=== PATIENT | female | born 1975 | race Caucasian/White ===

== ENCOUNTER 2016-12-05 01:10 | Emergency (ER) | payer MEDICAID, OTHER ==
[~2016-12-05] VITALS: Ht 175.3 cm; Wt 97.5 kg
[~2016-12-05 01:10] MED LIST: LISI-603 PO
[2016-12-05] MEDS ORDERED: LISINOPRIL 10 MG TABLET (01:50)
[2016-12-05] MEDS ORDERED: OMEPRAZOLE DR 20 MG CAPSULE (01:50)
[2016-12-05] MEDS ORDERED: TRAMADOL HCL 50 MG TABLET (01:50)
[2016-12-05] MEDS ORDERED: CARISOPRODOL 350 MG (01:50)
--- NOTE | 2016-12-05 01:55 | NUR ---
DR STACK IN ROOM FOR OLGA.
[2016-12-05] MEDS ORDERED: LIDOCAINE VISCUS 2% 15 ML UDC MM ONE (02:00)
[2016-12-05] MEDS ORDERED: PANTOPRAZOLE SODIUM 40 MG TABLET.DR PO ONE ×2 (02:00→02:25)
[2016-12-05] MEDS ORDERED: MAG HYDROX/AL HYDROX/SIMETH 30 ML LIQUID UDC PO ONE (02:00)
[2016-12-05 02:11] LABS: *URINE HCG, QUAL NEGATIVE (NEGATIVE)
--- NOTE | 2016-12-05 02:17 | NUR ---
Pt seen by Dr. Hernandes for c/o severe abd pain. Pt medicated for discomfort, will monitor for effects of medication. Pt resting in position of comfort for self.
[2016-12-05] MEDS ORDERED: MAG HYDROX/AL HYDROX/SIMETH 30 ML LIQUID UDC ONE (02:24)
[2016-12-05] MEDS ORDERED: LIDOCAINE VISCUS 2% 15 ML UDC ONE (02:24)
[2016-12-05] MEDS ORDERED: KETOROLAC TROMETHAMINE 30 MG INJ IM ONE (03:00)
[2016-12-05] MEDS ORDERED: KETOROLAC TROMETHAMINE 30 MG INJ ONE (03:16)
--- NOTE | 2016-12-05 03:25 | NUR ---
Pt sts little relief from medication but declines anything stronger here bc she is driving. Pt sts she will fill her RX and take it when she gets home. Pt stable for discharge per Dr. Hernandes. Pt given ACI and verbalized understanding of dc insructions. Pt ambulated out of er with steady gait.
[2016-12-05 03:55] VITALS: BP 141/94
== END 2016-12-05 03:25 | disposition home or self-care (01) ==
LOC: ER 01:10
DX: K80.20 Calculus of gallbladder without cholecystitis without obstruction (principal); I10 Essential (primary) hypertension; G43.909 Migraine, unspecified, not intractable, without status migrainosus
CPT/HCPCS: 84703; 96372; 99284; A4663; J1885

== ENCOUNTER 2017-09-24 12:18 | Emergency (ER) | payer OTHER ==
[~2017-09-24] VITALS: Ht 175.3 cm; Wt 97.5 kg
[~2017-09-24 12:18] MED LIST changes: +CARISOPRODOL 350 MG; +LISINOPRIL 10 MG TABLET; +OMEPRAZOLE DR 20 MG CAPSULE; +TRAMADOL HCL 50 MG TABLET
--- NOTE | 2017-09-24 12:47 | NUR ---
mse completed, aci/rx x1 given to mom. pt ambuklated w/o diff/took all belongings.
[2017-09-24 12:48] VITALS: BP 144/88
== END 2017-09-24 12:49 | disposition home or self-care (01) ==
LOC: ER 12:19
DX: J02.9 Acute pharyngitis, unspecified (principal); I10 Essential (primary) hypertension; Z88.8 Allergy status to other drugs, medicaments and biological substances; Z79.891 Long term (current) use of opiate analgesic; Z79.899 Other long term (current) drug therapy
CPT/HCPCS: A4663

== ENCOUNTER 2018-09-01 12:06 | Emergency (ER) | payer OTHER ==
[~2018-09-01] VITALS: Ht 177.8 cm; Wt 103.4 kg
[2018-09-01 12:31] LABS: BASOPHILS # (AUTO) 0.1 K/uL (0.0-8.0); EOSINOPHILS # (AUTO) 0.1 K/uL (0.0-0.7); EOSINOPHILS % (AUTO) 2.2 % (0.0-7.0); HEMATOCRIT 37.3 % (31.2-41.9); HEMOGLOBIN 12.4 g/dL (10.9-14.3); LYMPHOCYTES # (AUTO) 2.1 K/uL (20.0-40.0); LYMPHOCYTES % (AUTO) 40.1 % (20.5-51.5); MEAN CORPUSCULAR HEMOGLOBIN 29.9 uug (24.7-32.8); MEAN CORPUSCULAR HGB CONC 33 g/dL (32.3-35.6); MONOCYTES # (AUTO) 0.5 K/uL (2.0-10.0); MONOCYTES % (AUTO) 9.2 % (0.0-11.0); NEUTROPHILS # (AUTO) 2.4 K/uL (1.8-8.9); NEUTROPHILS % (AUTO) 46.5 % (38.5-71.5); PLATELET COUNT (AUTO) 361 K/uL (179-408); RED BLOOD CELL COUNT(AUTO) 4.15 MIL/uL (3.63-4.92); WHITE BLOOD COUNT (AUTO) 5.2 K/uL (3.8-11.8)
[2018-09-01 12:39] LABS: CREATININE 0.7 mg/dL (0.6-1.3); POTASSIUM 4.4 mmol/L (3.5-5.1)
[2018-09-01 12:57] LABS: BILIRUBIN,DIRECT 0.1 mg/dL (0.0-0.2); BILIRUBIN,TOTAL 0.3 mg/dL (0.2-1.0); TOTAL PROTEIN, SERUM 7.8 g/dL (6.4-8.2)
[2018-09-01] MEDS ORDERED: IV NORMAL SALINE 1000 ML BAG IV ONE (13:30)
[2018-09-01] MEDS ORDERED: ROSU5TAB PO (13:32)
[2018-09-01] MEDS ORDERED: HYDR-3326 PO (13:32)
[2018-09-01] MEDS ORDERED: LISI10TA5 PO (13:32)
[2018-09-01] MEDS ORDERED: IV NORMAL SALINE 250 ML IV ONE (13:33)
[2018-09-01] MEDS ORDERED: SWABABLE VALVE TRANSFER SET EA MC ONE (13:33)
[2018-09-01] MEDS ORDERED: IOHEXOL 350 100 ML INFUS..BTL ONE (13:33)
--- NOTE | 2018-09-01 14:18 | NUR ---
ATTEMTED TO HEPLOCK THE PT X3, ASKED RADHIKA GATICA ALSO TO TRY TO HEPLOCK THE PT. UNSUCCESSFUL. NOTIFIED.
--- NOTE | 2018-09-01 14:24 | NUR ---
PT SAYS FEELS BETTER, LESS ANXIOUS WHEN SHE CAME TO ER.
--- NOTE | 2018-09-01 15:26 | NUR ---
Patient discharged to home in stable conditon. verbal after care instructions given. Patient verbalizes understanding of instructions.PT SAYS FEELS GOOD AND IS READY TO GO HOME. A COPY OF STUDIES AND MENTAL HEALTH RESOURCE PROVIDED FOR PT PER REQUEST.PT WALKS IN STEADY GAIT, [place] CP, SOB,N/V OR ANY OTHER DISTRESS AT THIS POINT.
[2018-09-01 15:29] VITALS: BP 129/71
== END 2018-09-01 15:31 | disposition home or self-care (01) ==
LOC: ER 12:06
DX: R07.89 Other chest pain (principal); F43.9 Reaction to severe stress, unspecified; M54.5 Low back pain; I10 Essential (primary) hypertension; Z88.8 Allergy status to other drugs, medicaments and biological substances; Z79.899 Other long term (current) drug therapy
CPT/HCPCS: 36415; 70030-TC; 71045; 85025; 85730; 93005; A4663; J7050; Q9967

== ENCOUNTER 2018-09-24 11:12 | Emergency (ER) | payer OTHER ==
[~2018-09-24] VITALS: Ht 175.3 cm; Wt 103.4 kg
[~2018-09-24 11:12] MED LIST changes: -CARISOPRODOL 350 MG; +HYDR-3326 PO; -LISI-603 PO; +LISI10TA5 PO; -LISINOPRIL 10 MG TABLET; -OMEPRAZOLE DR 20 MG CAPSULE; +ROSU5TAB PO; -TRAMADOL HCL 50 MG TABLET
--- NOTE | 2018-09-24 11:37 | NUR ---
DR DA SILVA AT THE BEDSIDE FOR MSE.
[2018-09-24] MEDS ORDERED: ONDANSETRON ODT 4 MG TAB.RAPDIS SL ONE (11:45)
[2018-09-24] MEDS ORDERED: OXYCODONE/APAP 5-325 MG TABLET PO ONE (11:45)
[2018-09-24] MEDS ORDERED: ONDANSETRON ODT 4 MG TAB.RAPDIS ONE (11:51)
[2018-09-24] MEDS ORDERED: OXYCODONE/APAP 5-325 MG TABLET ONE (11:52)
[2018-09-24 11:59] VITALS: BP 143/89
--- NOTE | 2018-09-24 11:59 | NUR ---
Patient discharged to home in stable conditon. Written and verbal after care instructions given. Patient verbalizes understanding of instructions.
== END 2018-09-24 12:02 | disposition home or self-care (01) ==
LOC: ER 11:14
DX: G43.909 Migraine, unspecified, not intractable, without status migrainosus (principal); J06.9 Acute upper respiratory infection, unspecified; I10 Essential (primary) hypertension; Z88.8 Allergy status to other drugs, medicaments and biological substances; Z79.899 Other long term (current) drug therapy
CPT/HCPCS: A4663; Q0162

== ENCOUNTER 2019-02-23 02:07 | Inpatient (IN) | payer OTHER ==
[~2019-02-23] VITALS: Ht 175.3 cm; Wt 108.0 kg
[2019-02-23] MEDS ORDERED: CARI350T PO (02:21)
[2019-02-23] MEDS ORDERED: HYDR12.5 PO (02:21)
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
--- NOTE | 2019-02-23 02:40 | NUR ---
NOTED L KNEE SWELLING AND ERYTHEMA, D +BRUISE SP DRAINAGE OF FLUID COOL TO TOUCH, PEDAL PULSES PRESENT ON BOTH
[2019-02-23 03:11] LABS: BASOPHILS # (AUTO) 0.1 K/uL (0.0-8.0); BASOPHILS % (AUTO) 1.2 % (0.0-2.0); EOSINOPHILS # (AUTO) 0.1 K/uL (0.0-0.7); EOSINOPHILS % (AUTO) 1.4 % (0.0-7.0); HEMOGLOBIN 11.4 g/dL (10.9-14.3); LYMPHOCYTES # (AUTO) 1.9 K/uL (20.0-40.0); LYMPHOCYTES % (AUTO) 25.8 % (20.5-51.5); MEAN CORPUSCULAR HEMOGLOBIN 29.5 uug (24.7-32.8); MEAN CORPUSCULAR HGB CONC 34 g/dL (32.3-35.6); MEAN CORPUSCULAR VOLUME 87.9 fL (75.5-95.3); MONOCYTES # (AUTO) 0.7 K/uL (2.0-10.0); NEUTROPHILS # (AUTO) 4.5 K/uL (1.8-8.9); NEUTROPHILS % (AUTO) 62.6 % (38.5-71.5); PLATELET COUNT (AUTO) 425 K/uL (179-408); RED BLOOD CELL COUNT(AUTO) 3.87 MIL/uL (3.63-4.92); WHITE BLOOD COUNT (AUTO) 7.3 K/uL (3.8-11.8)
--- NOTE | 2019-02-23 03:16 | NUR ---
structural steel trades worker at bedside
[2019-02-23 03:19] LABS: CARBON DIOXIDE 26 mmol/L (21-32); CHLORIDE 97 mmol/L (98-107); CREATININE 0.6 mg/dL (0.6-1.3); GLUCOSE 114 mg/dL (74-106); POTASSIUM 3.8 mmol/L (3.5-5.1); UREA NITROGEN, BLOOD 6 mg/dL (7-18)
[2019-02-23 03:25] LABS: ALANINE AMINOTRANSFERASE 32 U/L (14-59); ALKALINE PHOSPHATASE 79 U/L (50-136); ASPARTATE AMINOTRANSFERASE 17 U/L (15-37); BILIRUBIN,DIRECT < 0.1 mg/dL (0.0-0.2); BILIRUBIN,TOTAL 0.3 mg/dL (0.2-1.0); TOTAL PROTEIN, SERUM 8.2 g/dL (6.4-8.2)
--- NOTE | 2019-02-23 03:33 | NUR ---
us tech at bedside
[2019-02-23 03:38] LABS: *BILIRUBIN,URIN NEGATIVE (NEGATIVE); *BLOOD, URINE NEGATIVE (NEGATIVE); *CLARITY,URINE CLEAR (CLEAR); *KETONES,URINE NEGATIVE (NEGATIVE); *UROBILINOGEN,URINE 0.2 E.U./dl (NORMAL); LEUKOCYTE ESTERASE ,URINE NEGATIVE (NEGATIVE); NITRITE, URINE NEGATIVE (NEGATIVE); UGLUCOSE NEGATIVE (NEGATIVE)
[2019-02-23] MEDS ORDERED: HYDROCODONE/APAP 10-325 MG TABLET ONE (03:41)
[2019-02-23] MEDS ORDERED: HYDROCODONE/APAP 10-325 MG TABLET PO ONE (03:45)
[2019-02-23] MEDS ORDERED: SWABABLE VALVE TRANSFER SET EA MC ONE (04:00)
[2019-02-23] MEDS ORDERED: IOHEXOL 350 100 ML INFUS..BTL ONE (04:00)
[2019-02-23] MEDS ORDERED: IV NORMAL SALINE 0 ML IV ONE (04:00)
[2019-02-23] MEDS ORDERED: IV NORMAL SALINE 250 ML IV ONE (04:01)
[2019-02-23 04:06] LABS: *COLOR,URINE STRAW (YELLOW); *URINE HCG, QUAL NEGATIVE (NEGATIVE)
--- NOTE | 2019-02-23 04:11 | NUR ---
SHIP SCRAPER AT BEDSIDE PT BROUGHT DOWN TO CT FOR CT ANGIO OF CHEST
[2019-02-23] MEDS ORDERED: ACETAMINOPHEN ES 500 MG TABLET PO ONE (05:00)
[2019-02-23] MEDS ORDERED: IV NS 1000 ML 1,000 ML IV ONE (05:00)
[2019-02-23] MEDS ORDERED: ACETAMINOPHEN ES 500 MG TABLET ONE (05:09)
[2019-02-23] MEDS ORDERED: VANCOMYCIN IV 1,500 MG in IV DEXTROSE 5% 250 ML IV ONE (05:30)
--- NOTE | 2019-02-23 05:33 | NUR ---
ERMD AT BEDSIDE FOR UPDATE PT PENDING DECISION ON ADMISSION
[2019-02-23] MEDS ORDERED: VANCOMYCIN HCL 500 MG VIAL ONE (05:40)
[2019-02-23] MEDS ORDERED: VANCOMYCIN IV 200 ML ONE (05:41)
--- NOTE | 2019-02-23 05:48 | NUR ---
ON THE PHONE WITH PREFERRED IPA (SOLOMON) DISCUSSED ABOUT CLINICALS OF PT ERMD RECOMMENDS ADMISSION DUE TO TACHYCARDIA AND L KNEE SWELLING AND PAIN
--- NOTE | 2019-02-23 05:54 | NUR ---
FAXED CLINICALS TO [phone]
--- NOTE | 2019-02-23 06:37 | NUR ---
EPIC PANEL CALL DONE. A KIARRA (ANCHOR TACKER)
--- NOTE | 2019-02-23 06:58 | NUR ---
HAND OFF AND SBAR GIVEN TO INCOMING DAY SHIFT RN (JUANITO) PT NAD KEPT CALM DRY AND COMFORTABLE FOR ADMISSION TO TELE RM [id number] DX: TACHYCARDIA UNDER KIARRA DNP
--- NOTE | 2019-02-23 07:11 | NUR ---
Janey Weinberg NP paged. Awaiting call back.
--- NOTE | 2019-02-23 07:54 | NUR ---
Janey Weinberg NP returned call and is on the line with ERMD.
--- NOTE | 2019-02-23 08:06 | NUR ---
Report given to SOLO Welch
--- NOTE | 2019-02-23 08:15 | NUR ---
Received patient AO4, Complained of shoulder and back neck pain, and chest pain 2 out 10. L Knew red and swollen, no fever, SBP in 140S Safety initiated
--- NOTE | 2019-02-23 08:21 | NUR ---
Patient transported to TELE via w/c in stable condition.
[2019-02-23] MEDS ORDERED: Z GUARD REMEDY PASTE 57 GM TUBE TOP PRN (08:30)
[2019-02-23] MEDS ORDERED: MAGNESIUM HYDROXIDE 30 ML LIQUID UDC PO PRN (08:30)
[2019-02-23] MEDS ORDERED: ACETAMINOPHEN 325 MG TABLET PO PRN (08:30)
[2019-02-23 08:33] VITALS: BP 142/88
[2019-02-23] MEDS: HYDROCODONE/APAP 10-325 MG TABLET PO PRN ×2 (09:11→19:55)
[2019-02-23] MEDS: ENOXAPARIN SODIUM 40 MG/0.4 ML DISP.SYRIN SQ SCH (09:12)
[2019-02-23] MEDS: IV NS 1000 ML 1,000 ML IV PRN (09:12)
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
[2019-02-23] MEDS: LISINOPRIL 10 MG TABLET PO SCH ×2 (09:34→17:10)
[2019-02-23] MEDS: HYDROCHLOROTHIAZIDE 12.5 MG CAPSULE PO SCH (09:34)
[2019-02-23] MEDS ORDERED: LORAZEPAM 2 MG/1 ML VIAL IV ONE (11:30)
[2019-02-23] MEDS ORDERED: LORAZEPAM 2 MG/1 ML VIAL IV PRN (14:15)
[2019-02-23] MEDS: VANCOMYCIN IV 2,000 MG in IV DEXTROSE 5% 500 ML IV SCH (14:59)
[2019-02-23] MEDS: HYDROCODONE/APAP 5-325MG TABLET PO PRN (14:59)
[2019-02-23 15:45] VITALS: BP 147/91
--- NOTE | 2019-02-23 16:01 | NUR ---
HAD TO STOP ABX B/C PATIENT IS TAKEN DOWN TO DO NUCLEAR STUDY.
--- NOTE | 2019-02-23 18:33 | NUR ---
k pad to left knee as nathan. and alternate with ice bag - Directions - ZELDA BLAKELY NP K pad ordered and ice bag applied
--- NOTE | 2019-02-23 18:34 | NUR ---
Patient AOX4, no distress or sob, on RA, Fluids running at 75/hr. no fever this shift Safety maintained, cont to monitor and indorse to the next shift
[2019-02-23 20:00] VITALS: BP 150/88
[2019-02-24 00:06] VITALS: BP 147/72
[2019-02-24] MEDS: VANCOMYCIN IV 2,000 MG in IV DEXTROSE 5% 500 ML IV SCH ×3 (00:07→20:12)
[2019-02-24] MEDS: IV NS 1000 ML 1,000 ML IV PRN (03:19)
[2019-02-24 04:00] VITALS: BP 140/64
[2019-02-24] MEDS: HYDROCODONE/APAP 10-325 MG TABLET PO PRN (05:50)
[2019-02-24] MEDS: PANTOPRAZOLE SODIUM 40 MG TABLET.DR PO SCH (06:43)
[2019-02-24 07:15] LABS: BASOPHILS % (AUTO) 0.9 % (0.0-2.0); EOSINOPHILS # (AUTO) 0.1 K/uL (0.0-0.7); EOSINOPHILS % (AUTO) 2.2 % (0.0-7.0); HEMATOCRIT 34.2 % (31.2-41.9); HEMOGLOBIN 11.3 g/dL (10.9-14.3); LYMPHOCYTES # (AUTO) 1.6 K/uL (20.0-40.0); LYMPHOCYTES % (AUTO) 33.5 % (20.5-51.5); MEAN CORPUSCULAR HEMOGLOBIN 30.1 uug (24.7-32.8); MEAN CORPUSCULAR HGB CONC 33 g/dL (32.3-35.6); MEAN CORPUSCULAR VOLUME 90.8 fL (75.5-95.3); MONOCYTES # (AUTO) 0.5 K/uL (2.0-10.0); MONOCYTES % (AUTO) 10.5 % (0.0-11.0); NEUTROPHILS # (AUTO) 2.6 K/uL (1.8-8.9); NEUTROPHILS % (AUTO) 52.9 % (38.5-71.5); PLATELET COUNT (AUTO) 382 K/uL (179-408); RED BLOOD CELL COUNT(AUTO) 3.77 MIL/uL (3.63-4.92); WHITE BLOOD COUNT (AUTO) 4.8 K/uL (3.8-11.8)
[2019-02-24 07:18] LABS: CARBON DIOXIDE 27 mmol/L (21-32); CHLORIDE 102 mmol/L (98-107); CHOLESTEROL 231 mg/dL (<200); CREATININE 0.5 mg/dL (0.6-1.3); GLUCOSE 112 mg/dL (74-106); HDL CHOLESTEROL 81 mg/dL (40-60); MAGNESIUM 1.8 mg/dL (1.8-2.4); PHOSPHOROUS 3.4 mg/dL (2.5-4.9); POTASSIUM 3.5 mmol/L (3.5-5.1); TRIGLYCERIDES 61 MG/DL (30-150); UREA NITROGEN, BLOOD 6 mg/dL (7-18)
[2019-02-24 07:25] LABS: THYROID STIMULATING HORMONE 0.201 mIU/mL (0.358-3.740)
[2019-02-24] MEDS: ENOXAPARIN SODIUM 40 MG/0.4 ML DISP.SYRIN SQ SCH (09:16)
[2019-02-24] MEDS: LISINOPRIL 10 MG TABLET PO SCH ×2 (09:17→17:20)
[2019-02-24] MEDS: HYDROCHLOROTHIAZIDE 12.5 MG CAPSULE PO SCH (09:17)
[2019-02-24] MEDS ORDERED: POTASSIUM CHLORIDE 20 MEQ POWDER PACKET PO ONE (11:15)
[2019-02-24 11:32] VITALS: BP 144/87
[2019-02-24] MEDS: MORPHINE SULFATE 2 MG/1 ML DISP.SYRIN IV PRN ×3 (11:56→23:02)
[2019-02-24 14:52] VITALS: BP 128/89
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
[2019-02-24] MEDS: HYDROCODONE/APAP 5-325MG TABLET PO PRN ×2 (15:41→21:24)
[2019-02-24 20:00] VITALS: BP 134/86
[2019-02-25] VITALS: BP 125/65
--- NOTE | 2019-02-25 03:00 | NUR ---
report received from casino shift manager nurse, will continue to monitor patient
[2019-02-25] MEDS: IV NS 1000 ML 1,000 ML IV PRN (04:15)
[2019-02-25] MEDS: MORPHINE SULFATE 2 MG/1 ML DISP.SYRIN IV PRN ×2 (04:27→07:50)
[2019-02-25] MEDS: HYDROCODONE/APAP 5-325MG TABLET PO PRN ×4 (04:40→21:21)
--- NOTE | 2019-02-25 04:53 | NUR ---
patient received sleeping in bed. no signs of acute distress and v/s stable during my shift. safety and comfort measures provided at all times. bed in lowest position, side rails up x2. patient had c/o of pain and asked for morphine but when attempting to administer, patient changed her mind and asked for her [place] instead. Dilaudid wasted and [place] administered. tolerated well. IVF running at 75 cc/hr. will continue to monitor and continue plan of care. Addendum: 02/28/19 at 0706 by THERESE OSULLIVAN RN correction: morphine wasted and [place] administered. not Dilaudid.
[2019-02-25 04:58] VITALS: BP 118/71
[2019-02-25] MEDS: VANCOMYCIN IV 2,000 MG in IV DEXTROSE 5% 500 ML IV SCH ×3 (05:08→22:56)
[2019-02-25 05:47] LABS: CREATININE 0.6 mg/dL (0.6-1.3); MAGNESIUM 1.7 mg/dL (1.8-2.4); PHOSPHOROUS 3.8 mg/dL (2.5-4.9); POTASSIUM 4.1 mmol/L (3.5-5.1)
[2019-02-25] MEDS: PANTOPRAZOLE SODIUM 40 MG TABLET.DR PO SCH (06:00)
[2019-02-25 06:02] LABS: BASOPHILS # (AUTO) 0.1 K/uL (0.0-8.0); BASOPHILS % (AUTO) 1.2 % (0.0-2.0); EOSINOPHILS # (AUTO) 0.2 K/uL (0.0-0.7); HEMOGLOBIN 10.8 g/dL (10.9-14.3); MEAN CORPUSCULAR HEMOGLOBIN 29.2 uug (24.7-32.8); MEAN CORPUSCULAR HGB CONC 33 g/dL (32.3-35.6); MEAN CORPUSCULAR VOLUME 89.2 fL (75.5-95.3); MONOCYTES # (AUTO) 0.6 K/uL (2.0-10.0); MONOCYTES % (AUTO) 10.4 % (0.0-11.0); NEUTROPHILS # (AUTO) 2.7 K/uL (1.8-8.9); NEUTROPHILS % (AUTO) 48.4 % (38.5-71.5); PLATELET COUNT (AUTO) 397 K/uL (179-408); WHITE BLOOD COUNT (AUTO) 5.6 K/uL (3.8-11.8)
--- NOTE | 2019-02-25 07:25 | NUR ---
Received patient resting in bed. Awake alert and oriented x4. Patient reporting pain. bed in lowest position, side rails up x2, call light within reach. Will continue to monitor.
[2019-02-25] MEDS: ENOXAPARIN SODIUM 40 MG/0.4 ML DISP.SYRIN SQ SCH (08:36)
[2019-02-25] MEDS: HYDROCHLOROTHIAZIDE 12.5 MG CAPSULE PO SCH (08:37)
[2019-02-25] MEDS: LISINOPRIL 10 MG TABLET PO SCH ×2 (08:38→16:23)
--- NOTE | 2019-02-25 09:07 | NUR ---
PHARMACY CLINICAL NOTES: (VANCOMYCIN DOSING) S: To continue vanco dosing for this 43 YO female for cellulitis O: BUN/SCR 6/0.6, WBC 5.6, TEMP 98 Vanco trough level on 02/24 at 1930: 12.2 A/P: Since vanco trough level is 12.2,l will change dose to Vancomycin 2000 mg IVPB q9h for estimated trough 15 mcg/ml. 2nd dose today at 1400. plan to order trough level before 4th dose of current regimen (ordered for 02/26 at 0730). pharmacy will check level when available and adjust as needed. will continue to monitor
[2019-02-25] MEDS: MAGNESIUM SULFATE/D5W 100 ML IV SCH ×2 (09:47→10:48)
[2019-02-25] MEDS ORDERED: METHIMAZOLE 5 MG TABLET PO SCH (13:45)
[2019-02-25 16:25] VITALS: BP 130/82
--- NOTE | 2019-02-25 18:21 | NUR ---
Patient rested intermittently throughout day. Patient reported pain, pain medication administered. Patient seen by Dr. Ruano, surgery scheduled for irrigation and debridement and quad repair. Magnesium replaced. Antibiotics administered. Replaced patients IV due to infiltration. Safety and comfort measures provided. Will endorse to oncoming nurse.
[2019-02-26] MEDS: MORPHINE SULFATE 2 MG/1 ML DISP.SYRIN IV PRN ×2 (03:19→09:53)
[2019-02-26 06:39] LABS: BASOPHILS # (AUTO) 0.1 K/uL (0.0-8.0); BASOPHILS % (AUTO) 1.3 % (0.0-2.0); EOSINOPHILS # (AUTO) 0.3 K/uL (0.0-0.7); EOSINOPHILS % (AUTO) 4.5 % (0.0-7.0); HEMATOCRIT 34.1 % (31.2-41.9); HEMOGLOBIN 11.4 g/dL (10.9-14.3); LYMPHOCYTES # (AUTO) 2.3 K/uL (20.0-40.0); LYMPHOCYTES % (AUTO) 38.5 % (20.5-51.5); MEAN CORPUSCULAR HEMOGLOBIN 30.3 uug (24.7-32.8); MEAN CORPUSCULAR HGB CONC 33 g/dL (32.3-35.6); MEAN CORPUSCULAR VOLUME 90.8 fL (75.5-95.3); MONOCYTES # (AUTO) 0.5 K/uL (2.0-10.0); MONOCYTES % (AUTO) 8.8 % (0.0-11.0); NEUTROPHILS # (AUTO) 2.8 K/uL (1.8-8.9); NEUTROPHILS % (AUTO) 46.9 % (38.5-71.5); PLATELET COUNT (AUTO) 384 K/uL (179-408); RED BLOOD CELL COUNT(AUTO) 3.75 MIL/uL (3.63-4.92); WHITE BLOOD COUNT (AUTO) 6.1 K/uL (3.8-11.8)
[2019-02-26] MEDS: IV NS 1000 ML 1,000 ML IV PRN (06:40)
[2019-02-26 06:52] LABS: CREATININE 0.6 mg/dL (0.6-1.3); PHOSPHOROUS 3.6 mg/dL (2.5-4.9); POTASSIUM 3.5 mmol/L (3.5-5.1)
[2019-02-26] MEDS: PANTOPRAZOLE SODIUM 40 MG TABLET.DR PO SCH (07:00)
--- NOTE | 2019-02-26 08:00 | NUR ---
PT RESTING COMFORTABLY IN BED. NO ACUTE DISTRESS OR SOB NOTED. BED LOCKED AND IN LOW POSITION. PT NPO FOR SURGICAL PROCEDURE. CALL LIGHT WITHIN REACH. WILL CONTINUE TO MONITOR FOR SAFETY AND COMFORT.
[2019-02-26] MEDS ORDERED: POLYMYXIN B SULFATE 500,000 UNITS, BACITRACIN 50,000 UNITS, NORMAL SALINE 20 ML MC ONE ×3 (08:30)
[2019-02-26] MEDS: ENOXAPARIN SODIUM 40 MG/0.4 ML DISP.SYRIN SQ SCH (08:30)
--- NOTE | 2019-02-26 08:33 | NUR ---
PHARMACY CLINICAL NOTES: (VANCOMYCIN DOSING) S: To continue vanco dosing for this 43 YO female for cellulitis O: BUN/SCR 6/0.6, WBC 5.6, TEMP 98 Vanco trough level on 02/24 at 1930: 12.2 Vanco trough level on 02/26 at 0730: 16.7 A/P: Since vanco trough level is 16.7 mcg/ml, will continue same dose to Vancomycin 2000 mg IVPB q9h for today. Next dose today at 0900. Will monitor renal function and adjust dose as needed. will continue to monitor Addendum: 02/26/19 at 0835 by SINCERE SMITH BUN/SCR 5/0.6, WBC 6.1, TEMP 97.9
[2019-02-26] MEDS: HYDROCHLOROTHIAZIDE 12.5 MG CAPSULE PO SCH (08:40)
[2019-02-26] MEDS: LISINOPRIL 10 MG TABLET PO SCH ×2 (08:40→18:13)
[2019-02-26] MEDS: VANCOMYCIN IV 2,000 MG in IV DEXTROSE 5% 500 ML IV SCH ×2 (09:53→18:13)
--- NOTE | 2019-02-26 12:00 | NUR ---
PT RESTING COMFORTABLY IN BED. NO ACUTE DISTRESS OR SOB NOTED. PT PAIN MANAGED WITH MEDS. PRE OP CHECKLIST COMPLETED. CONSENT SIGNED. PROCEDURE TO TAKE PLACE AT 1500 PER OR. BED LOCKED AND IN LOW POSITION. IV CHANGED TO RIGHT FOREARM 20 GAUGE. REMOVED LEFT HAND IV INTACT. WILL CONTINUE TO MONITOR. CALL LIGHT WITHIN REACH.
[2019-02-26 12:01] VITALS: BP 130/88
[2019-02-26] MEDS: HYDROCODONE/APAP 5-325MG TABLET PO PRN (12:05)
[2019-02-26] MEDS ORDERED: VANCOMYCIN 1000 MG VIAL ONE (12:57)
--- NOTE | 2019-02-26 14:50 | NUR ---
PT ESCORTED TO OR BY OR STAFF. IV DISCONNECTED. PT ALERT AND ORIENTED X3. NO ACUTE STRESS NOTED. NO SOB NOTED.
[2019-02-26] MEDS ORDERED: FAMOTIDINE. 20 MG/2 ML VIAL IV ONE (15:16)
[2019-02-26] MEDS ORDERED: MIDAZOLAM HCL 2 MG/2 ML VIAL ONE (15:55)
[2019-02-26] MEDS ORDERED: BUPIVACAINE PF 0.5% 30 ML VIAL ONE (16:20)
[2019-02-26] MEDS ORDERED: LIDOCAINE-MPF 2% 5 ML VIAL IJ ONE (16:35)
[2019-02-26] MEDS ORDERED: DEXAMETHASONE SOD PHOSPHATE 4 MG INJ IV ONE (16:35)
[2019-02-26] MEDS ORDERED: IV NORMAL SALINE 1000 ML BAG IV ONE ×2 (16:35)
[2019-02-26] MEDS ORDERED: ONDANSETRON 4 MG/2 ML VIAL IV ONE (16:35)
[2019-02-26] MEDS ORDERED: PROPOFOL 200 MG/20 ML BOTTLE IV ONE (16:35)
[2019-02-26] MEDS ORDERED: CEFAZOLIN 1 G VIAL IM ONE (16:35)
[2019-02-26] MEDS ORDERED: FENTANYL CITRATE 100 MCG/2 ML AMPUL ONE (16:44)
[2019-02-26] MEDS ORDERED: HYDROMORPHONE 1 MG/1 ML DISP.SYRIN ONE (16:57)
--- NOTE | 2019-02-26 18:00 | NUR ---
RECEIVED PT FROM OR ESCORTED BY OR STAFF VIA BED. PT ALERT AND ORIENTED X3. NO ACUTE DISTRESS OR SOB NOTED. NEW ORDERS FAXED TO PHARMACY BY OR. PAIN MANAGED VIA MEDICATION. RESUME ALL PREVIOUS ORDERS PRIOR TO SURGERY. VS WNL. PT BACK ON CARDIAC DIET. WILL ENDORSE TO INCOMING SHIFT.
[2019-02-26] MEDS: HYDROCODONE/APAP 10-325 MG TABLET PO PRN (19:47)
[2019-02-26] MEDS ORDERED: KETOROLAC TROMETHAMINE 30 MG INJ IVP PRN ×2 (20:15→20:30)
[2019-02-26 20:22] VITALS: BP 134/78
[2019-02-26] MEDS: IV D5W-0.45% NS +20 KCL 1,000 ML IV PRN (20:24)
[2019-02-26] MEDS: MORPHINE SULFATE 4 MG/1 ML DISP.SYRIN IV PRN (23:18)
[2019-02-26] MEDS: ONDANSETRON 4 MG/2 ML VIAL IV PRN (23:32)
[2019-02-27] MEDS: HYDROCODONE/APAP 10-325 MG TABLET PO PRN ×5 (00:25→22:03)
[2019-02-27] MEDS: MORPHINE SULFATE 4 MG/1 ML DISP.SYRIN IV PRN ×5 (03:19→20:23)
[2019-02-27 04:03] VITALS: BP 132/64
[2019-02-27] MEDS: VANCOMYCIN IV 2,000 MG in IV DEXTROSE 5% 500 ML IV SCH ×3 (04:11→21:19)
--- NOTE | 2019-02-27 05:48 | NUR ---
Patient was hesitant to get morphine injection for pain management because of a side effect that she has experienced before. Patient tolerated the morphine injection when she received Zofran injection as well, will endorse to incoming day shift nurse. Attended all needs. Ensured safety and comfort. Pain managed with prn medications with relief. Patient had no other complaints and no other untoward events noted. Will endorse accordingly.
[2019-02-27 06:28] LABS: BASOPHILS # (AUTO) 0.1 K/uL (0.0-8.0); BASOPHILS % (AUTO) 0.6 % (0.0-2.0); EOSINOPHILS % (AUTO) 0.3 % (0.0-7.0); HEMATOCRIT 31.2 % (31.2-41.9); HEMOGLOBIN 10.4 g/dL (10.9-14.3); LYMPHOCYTES # (AUTO) 1.9 K/uL (20.0-40.0); LYMPHOCYTES % (AUTO) 17.9 % (20.5-51.5); MEAN CORPUSCULAR HEMOGLOBIN 29.7 uug (24.7-32.8); MEAN CORPUSCULAR HGB CONC 33 g/dL (32.3-35.6); MEAN CORPUSCULAR VOLUME 89.1 fL (75.5-95.3); MONOCYTES % (AUTO) 9.7 % (0.0-11.0); NEUTROPHILS # (AUTO) 7.5 K/uL (1.8-8.9); NEUTROPHILS % (AUTO) 71.5 % (38.5-71.5); PLATELET COUNT (AUTO) 382 K/uL (179-408); WHITE BLOOD COUNT (AUTO) 10.5 K/uL (3.8-11.8)
[2019-02-27 06:32] LABS: CREATININE 0.6 mg/dL (0.6-1.3); MAGNESIUM 1.9 mg/dL (1.8-2.4); PHOSPHOROUS 2.7 mg/dL (2.5-4.9); POTASSIUM 3.9 mmol/L (3.5-5.1)
[2019-02-27] MEDS: PANTOPRAZOLE SODIUM 40 MG TABLET.DR PO SCH (06:41)
[2019-02-27] MEDS: ONDANSETRON 4 MG/2 ML VIAL IV PRN ×2 (06:41→12:17)
--- NOTE | 2019-02-27 08:00 | NUR ---
pt very anxious breathing rapidly. Calmed pt down by decreasing environmental stimuli. Discussed plan of care with pt re: pain management for her left knee. Pt verbalized understanding. Left knee pod#1 , wrapped with dressing no bleeding noted. Pt able to wiggle toes on bli legs. Applied ice and elevated of left knee.
[2019-02-27] MEDS: HYDROCHLOROTHIAZIDE 12.5 MG CAPSULE PO SCH (08:49)
[2019-02-27] MEDS: LISINOPRIL 10 MG TABLET PO SCH ×2 (08:52→16:40)
[2019-02-27] MEDS: ENOXAPARIN SODIUM 40 MG/0.4 ML DISP.SYRIN SQ SCH (08:56)
--- NOTE | 2019-02-27 09:35 | NUR ---
PHARMACY CLINICAL NOTES: (VANCOMYCIN DOSING) S: To continue vanco dosing for this 43 YO female for cellulitis O: BUN/SCR 7/0.6, WBC 10.5, TEMP 98.4 Vanco trough level on 02/24 at 1930: 12.2 Vanco trough level on 02/26 at 0730: 16.7 A/P: Will continue same dose to Vancomycin 2000 mg IVPB q9h for today. Will monitor renal function and adjust dose as needed. will continue to monitor
[2019-02-27] MEDS: IV D5W-0.45% NS +20 KCL 1,000 ML IV PRN ×2 (10:01→20:52)
[2019-02-27 12:05] VITALS: BP 138/83
[2019-02-27] MEDS: CARISOPRODOL 350 MG TABLET PO PRN ×2 (14:02→22:03)
[2019-02-27 16:48] VITALS: BP 108/63
--- NOTE | 2019-02-27 18:46 | NUR ---
Pt's pain managed with alternating norco and morphine. Pt was given zofran earlier for c/o nausea. Current pain level tolerable with 2/10 on the left leg pain. Pt Is in no acute distress. Call light is within reach. IV on right arm got infiltrated ice applied. restart iv on left hand 20 gauge intact.
[2019-02-27 20:09] VITALS: BP 103/61
[2019-02-28] MEDS: MORPHINE SULFATE 4 MG/1 ML DISP.SYRIN IV PRN ×4 (00:45→20:03)
[2019-02-28 05:16] VITALS: BP 115/62
[2019-02-28] MEDS: VANCOMYCIN IV 2,000 MG in IV DEXTROSE 5% 500 ML IV SCH ×2 (06:00→16:56)
[2019-02-28] MEDS: PANTOPRAZOLE SODIUM 40 MG TABLET.DR PO SCH (06:00)
[2019-02-28] MEDS: HYDROCODONE/APAP 10-325 MG TABLET PO PRN ×4 (06:25→23:27)
[2019-02-28] MEDS: CARISOPRODOL 350 MG TABLET PO PRN ×3 (06:25→23:36)
[2019-02-28 06:52] LABS: BASOPHILS # (AUTO) 0.1 K/uL (0.0-8.0); BASOPHILS % (AUTO) 1.2 % (0.0-2.0); EOSINOPHILS # (AUTO) 0.4 K/uL (0.0-0.7); EOSINOPHILS % (AUTO) 4.5 % (0.0-7.0); HEMATOCRIT 31.6 % (31.2-41.9); HEMOGLOBIN 10.4 g/dL (10.9-14.3); LYMPHOCYTES # (AUTO) 2.6 K/uL (20.0-40.0); LYMPHOCYTES % (AUTO) 31.5 % (20.5-51.5); MEAN CORPUSCULAR HGB CONC 33 g/dL (32.3-35.6); MEAN CORPUSCULAR VOLUME 90.9 fL (75.5-95.3); MONOCYTES # (AUTO) 0.8 K/uL (2.0-10.0); MONOCYTES % (AUTO) 9.9 % (0.0-11.0); NEUTROPHILS # (AUTO) 4.4 K/uL (1.8-8.9); NEUTROPHILS % (AUTO) 52.9 % (38.5-71.5); PLATELET COUNT (AUTO) 356 K/uL (179-408); RED BLOOD CELL COUNT(AUTO) 3.47 MIL/uL (3.63-4.92); WHITE BLOOD COUNT (AUTO) 8.3 K/uL (3.8-11.8)
--- NOTE | 2019-02-28 06:57 | NUR ---
PATIENT SLEPT WELL LAST NIGHT, PAIN MANAGED WITH MORPHINE AND NORCO ROTATING. SURGICAL DRESSING INTACT AND DRY, WAS ABLE TO AMBULATE TOLERATED. NO ACUTE CHANGES, PATIENT IS IN NO DISTRESS. ENDORSED TO AM SHIFT.
[2019-02-28 07:18] LABS: BILIRUBIN,TOTAL 0.2 mg/dL (0.2-1.0); CREATININE 0.6 mg/dL (0.6-1.3); MAGNESIUM 1.9 mg/dL (1.8-2.4); POTASSIUM 3.9 mmol/L (3.5-5.1); TOTAL PROTEIN, SERUM 6.7 g/dL (6.4-8.2)
--- NOTE | 2019-02-28 08:05 | NUR ---
Received patient awake in bed. AAOx4. Surgical dressing intact and HONORIO wrapped. In no acute distress at this time. No SOB noted. IV on L hand intact and patent with IVF running. Plan of care initiated. Call light within reach. Will continue to monitor.
--- NOTE | 2019-02-28 09:01 | NUR ---
PHARMACY CLINICAL NOTES: (VANCOMYCIN DOSING) S: To continue vanco dosing for this 43 YO female for cellulitis O: BUN/SCR 10/0.6, WBC 8.3, TEMP 98.4 Vanco trough level on 02/24 at 1930: 12.2 Vanco trough level on 02/26 at 0730: 16.7 A/P: Will continue same dose to Vancomycin 2000 mg IVPB q9h for today as renal function has remained stable. Will monitor renal function and adjust dose as needed. will continue to monitor
[2019-02-28] MEDS: ENOXAPARIN SODIUM 40 MG/0.4 ML DISP.SYRIN SQ SCH (09:30)
[2019-02-28] MEDS: HYDROCHLOROTHIAZIDE 12.5 MG CAPSULE PO SCH (09:30)
[2019-02-28] MEDS: LISINOPRIL 10 MG TABLET PO SCH ×2 (09:58→18:39)
[2019-02-28 11:59] VITALS: BP 123/74
[2019-02-28 15:55] VITALS: BP 119/74
--- NOTE | 2019-02-28 18:10 | NUR ---
Patient resting in bed comfortably at this time. Complained of L knee pain throughout shift; patient medicated appropriately with PRN Kimberly and Morphine appropriately. Will endorse care accordingly.
[2019-02-28 20:48] VITALS: BP 108/62
[2019-02-28] MEDS: IV D5W-0.45% NS +20 KCL 1,000 ML IV PRN (21:27)
[2019-03-01 04:40] VITALS: BP 123/84
[2019-03-01] MEDS: MORPHINE SULFATE 4 MG/1 ML DISP.SYRIN IV PRN (04:45)
[2019-03-01] MEDS: PANTOPRAZOLE SODIUM 40 MG TABLET.DR PO SCH (06:34)
--- NOTE | 2019-03-01 06:37 | NUR ---
Patient slept intermittently. No SOB noted. PRN pain medication given as ordered for L knee pain. All needs attended. Will endorse accordingly
[2019-03-01] MEDS: CARISOPRODOL 350 MG TABLET PO PRN (07:33)
[2019-03-01] MEDS: HYDROCODONE/APAP 10-325 MG TABLET PO PRN ×2 (07:33→11:59)
--- NOTE | 2019-03-01 07:45 | NUR ---
Received patient awake. AAOx4. Complaining of L knee pain at this time; will medicate appropriately. No SOB noted. Call light within reach. Will continue to monitor.
[2019-03-01] MEDS: ENOXAPARIN SODIUM 40 MG/0.4 ML DISP.SYRIN SQ SCH (09:44)
[2019-03-01] MEDS: LISINOPRIL 10 MG TABLET PO SCH (09:48)
[2019-03-01] MEDS: HYDROCHLOROTHIAZIDE 12.5 MG CAPSULE PO SCH (09:48)
[2019-03-01 11:30] VITALS: BP 123/76
[2019-03-01] MEDS ORDERED: FERR325T28 PO (12:49)
[2019-03-01] MEDS ORDERED: CARI350T27 PO (12:49)
[2019-03-01] MEDS ORDERED: HYDR-3980 PO (12:49)
--- NOTE | 2019-03-01 14:50 | NUR ---
Discharge orders in place. In no acute distress. Vital signs WNL. Ambulatory with walker. Tolerating physical therapy. Exit care provided. Surgical dressing on L knee removed, cleaned and wrapped. Incision looks clean and dry; no s/s of infection. Educated on new prescription and how to clean surgical incision daily. Also, instructed to go to nearest ER if site looks infected. IV and ID band removed. Patient discharged to home.
--- NOTE | 2019-03-01 15:00 | NUR ---
Upon taking patient with wheelchair to front, patient stated she was driving. Educated patient that it is not safe to drive after her procedure and the risks of doing so. Patient frustrated and stood up from wheelchair and exited building.
--- NOTE | 2019-03-01 15:02 | NUR ---
Patient enters building again and states that she will call a taxi. Educated again on the risks of driving at this time. Reinforced exit care education and the importance of continuity care and to follow up with appropriate specialists.
== END 2019-03-01 14:45 | disposition home health service (06) | DRG 951 ==
LOC: ER 02:16 → TELE3 08:01 → MEDSURG3 02-25 13:30
PROVIDERS: ADMIT Registered Nurse; ATTEND Registered Nurse
PROC: 0K9R0ZZ Drainage of Left Upper Leg Muscle, Open Approach (ICD-10-PCS; principal; 2019-02-26)
DX: E05.90 Thyrotoxicosis, unspecified without thyrotoxic crisis or storm (principal); D68.59 Other primary thrombophilia; E87.8 Other disorders of electrolyte and fluid balance, not elsewhere classified; E66.01 Morbid (severe) obesity due to excess calories; L03.116 Cellulitis of left lower limb; Z68.35 Body mass index [BMI] 35.0-35.9, adult; F43.22 Adjustment disorder with anxiety; S76.102A Unspecified injury of left quadriceps muscle, fascia and tendon, initial encounter; V03.99XA Pedestrian with other conveyance injured in collision with car, pick-up truck or van, unspecified whether traffic or nontraffic accident, initial encounter; Y92.481 Parking lot as the place of occurrence of the external cause; Z74.09 Other reduced mobility; G89.29 Other chronic pain; D50.9 Iron deficiency anemia, unspecified; I10 Essential (primary) hypertension; Z79.899 Other long term (current) drug therapy; G43.909 Migraine, unspecified, not intractable, without status migrainosus; E78.00 Pure hypercholesterolemia, unspecified
CPT/HCPCS: 36415; 70030-TC; 71045; 71275; 78579; 83735; 84100; 84443; 84703; 85025; 85730; 86850; 86900; 86901; 87070; 87075; 93005; 93307; A4649; A4663; A9150; A9540; A9567; G0378; J0690; J1100; J1170; J1650; J2060; J2250; J2270; J2405; J3010; J3370; J3475; J3490; J7030; J7050; J7060; Q9967

== ENCOUNTER 2019-03-25 09:13 | Emergency (ER) | END 2019-03-25 10:25 | disposition home or self-care (01) | DX: I10 Essential (primary) hypertension (principal); J02.9 Acute pharyngitis, unspecified; M25.562 Pain in left knee; Z88.8 Allergy status to other drugs, medicaments and biological substances; Z79.899 Other long term (current) drug therapy ==

== ENCOUNTER 2019-11-30 11:29 | Emergency (ER) | payer OTHER ==
[~2019-11-30] VITALS: Ht 175.3 cm; Wt 90.7 kg
[~2019-11-30 11:29] MED LIST changes: +CARI350T27 PO; +FERR325T28 PO; -HYDR-3326 PO; +HYDR-3980 PO; +HYDR12.5 PO; -ROSU5TAB PO
--- NOTE | 2019-11-30 11:35 | NUR ---
urine specimen collected and taken up to the lab.
[2019-11-30] MEDS ORDERED: LISI10TA5 PO (11:40)
--- NOTE | 2019-11-30 12:01 | NUR ---
at bedside to examine patient.
[2019-11-30 12:12] LABS: *BILIRUBIN,URIN NEGATIVE (NEGATIVE); *BLOOD, URINE NEGATIVE (NEGATIVE); *CLARITY,URINE CLEAR (CLEAR); *COLOR,URINE YELLOW (YELLOW); *KETONES,URINE NEGATIVE (NEGATIVE); *UROBILINOGEN,URINE 0.2 E.U./dl (NORMAL); LEUKOCYTE ESTERASE ,URINE NEGATIVE (NEGATIVE); NITRITE, URINE NEGATIVE (NEGATIVE); PH,URINE 6.5 (5.0-8.0); UGLUCOSE NEGATIVE (NEGATIVE)
[2019-11-30 12:17] LABS: *URINE HCG, QUAL NEG (NEGATIVE)
--- NOTE | 2019-11-30 13:00 | NUR ---
Pelvic examen done by Dr. Hernandes specimen collected taken to lab.
[2019-11-30] MEDS ORDERED: CEFTRIAXONE 500 MG VIAL IM ONE (13:30)
[2019-11-30] MEDS ORDERED: AZITHROMYCIN 250 MG TABLET PO ONE (13:30)
[2019-11-30] MEDS ORDERED: AZITHROMYCIN 250 MG TABLET ONE (13:36)
[2019-11-30] MEDS ORDERED: CEFTRIAXONE 500 MG VIAL ONE (13:37)
[2019-11-30 13:54] VITALS: BP 145/79
--- NOTE | 2019-11-30 13:55 | NUR ---
Patient discharged to home in stable condition. Written and verbal after care instructions given. Patient verbalizes understanding of instructions. Stressed follow up or return to ER for worsening s/s. Patient ambulated with stable gait.
[2019-12-02 12:09] LABS: *GC NAA Negative (Negative); *TRIC.VAG. NAA Negative (Negative)
== END 2019-11-30 13:55 | disposition home or self-care (01) ==
LOC: ER 11:30
DX: R30.0 Dysuria (principal); I10 Essential (primary) hypertension; Z11.3 Encounter for screening for infections with a predominantly sexual mode of transmission
CPT/HCPCS: 81001; 84703; 87210; 87491; 96372; 99283; J0696; A4663; Q0144

== ENCOUNTER 2020-05-11 12:00 | Emergency (ER) | payer OTHER ==
[~2020-05-11] VITALS: Ht 175.3 cm; Wt 90.7 kg
[~2020-05-11 12:00] MED LIST changes: -FERR325T28 PO; +LISI10TA29 PO; -LISI10TA5 PO
[2020-05-11 12:48] LABS: *BILIRUBIN,URIN NEGATIVE (NEGATIVE); *BLOOD, URINE 2+ (NEGATIVE); *CLARITY,URINE CLEAR (CLEAR); *COLOR,URINE YELLOW (YELLOW); *KETONES,URINE NEGATIVE (NEGATIVE); *UROBILINOGEN,URINE 0.2 E.U./dl (NORMAL); LEUKOCYTE ESTERASE ,URINE NEGATIVE (NEGATIVE); NITRITE, URINE NEGATIVE (NEGATIVE); UGLUCOSE NEGATIVE (NEGATIVE)
[2020-05-11 12:53] LABS: *URINE HCG, QUAL NEGATIVE (NEGATIVE)
--- NOTE | 2020-05-11 13:13 | NUR ---
Patient discharged to home in stable condition. Written and verbal after care instructions given. Patient verbalizes understanding of instructions. Stressed follow up or return to ER for worsening s/s.
[2020-05-11 17:11] LABS: BACTERIA,URINE NONE SEEN /HPF (NONE SEEN); SQUAMOUS EPITHELIAL CELL,UR FEW /HPF (NONE SEEN); WBC,URINE 0-3 /HPF (0-3)
== END 2020-05-11 13:20 | disposition home or self-care (01) ==
LOC: ER 12:00
DX: R30.0 Dysuria (principal); I10 Essential (primary) hypertension; Z98.82 Breast implant status; Z88.6 Allergy status to analgesic agent; Z88.8 Allergy status to other drugs, medicaments and biological substances; Z79.899 Other long term (current) drug therapy
CPT/HCPCS: 84703; 87086; 87491; A4663

== ENCOUNTER 2020-12-01 07:41 | Emergency (ER) | payer OTHER ==
[~2020-12-01] VITALS: Ht 175.3 cm; Wt 95.3 kg
[2020-12-01] MEDS ORDERED: IV NORMAL SALINE 1000 ML BAG IV ONE (08:30)
--- NOTE | 2020-12-01 08:37 | NUR ---
PT IS IN ROOM #2A. DR STACK EVALUATED THE PT.
[2020-12-01 08:40] LABS: HEMATOCRIT 31.6 % (31.2-41.9); MEAN CORPUSCULAR HEMOGLOBIN 31.6 uug (24.7-32.8); MEAN CORPUSCULAR VOLUME 94.6 fL (75.5-95.3); PLATELET COUNT (AUTO) 392 K/uL (179-408)
[2020-12-01 08:41] LABS: CREATININE 0.7 mg/dL (0.6-1.3); POTASSIUM 3.5 mmol/L (3.5-5.1)
[2020-12-01 08:47] LABS: BILIRUBIN,TOTAL 0.1 mg/dL (0.2-1.0); TOTAL PROTEIN, SERUM 7.4 g/dL (6.4-8.2)
[2020-12-01] MEDS ORDERED: ACETAMINOPHEN 325 MG TABLET ONE (10:10)
[2020-12-01 10:18] LABS: *URINE HCG, QUAL NEG (NEGATIVE)
--- NOTE | 2020-12-01 12:28 | NUR ---
PT DECIDED TO LEAVE HOSPITAL AMA . DR STACK EXPLAINED ALL RISKS OF LEAVING HOSPITAL AMA TO THE PT. PT WERBALIZED FULL UNDERSTANDING. PT SIGNED AMA FORM AND LEFT HOSPITAL BY TAXI.
[2020-12-01 12:30] VITALS: BP 129/84
== END 2020-12-01 12:31 | disposition left against medical advice (07) ==
LOC: ER 07:41
DX: R07.9 Chest pain, unspecified (principal); Z20.822 Contact with and (suspected) exposure to COVID-19; Z53.29 Procedure and treatment not carried out because of patient's decision for other reasons; Z98.82 Breast implant status; Z86.711 Personal history of pulmonary embolism; I10 Essential (primary) hypertension; Z79.899 Other long term (current) drug therapy; F41.9 Anxiety disorder, unspecified; R00.0 Tachycardia, unspecified
CPT/HCPCS: 36415; 70030-TC; 71045; 84443; 84703; 85025; 93005; A4663; J7030

== ENCOUNTER → 2021-02-23 | Emergency (ER) | payer SELFPAY | END | disposition left against medical advice (07) | LOC: ER 14:08 | DX: Z53.21 Procedure and treatment not carried out due to patient leaving prior to being seen by health care provider (principal) ==

== ENCOUNTER 2022-01-13 20:05 | Emergency (ER) | payer OTHER ==
[~2022-01-13] VITALS: Ht 175.3 cm; Wt 97.5 kg
--- NOTE | 2022-01-13 21:30 | NUR ---
Patient was called to be triaged but was not present in the waiting room or outside of ER.
[2022-01-13] MEDS ORDERED: KETOROLAC TROMETHAMINE 60 MG INJ IM ONE (23:35)
[2022-01-13] MEDS: KETOROLAC TROMETHAMINE 60 MG INJ IM ONE (23:41)
--- NOTE | 2022-01-13 23:51 | NUR ---
given torodol 60 mg IM. left buttocks for pain. Patient is relaxting , will re-assess in an hour.
[2022-01-14 00:02] VITALS: BP 122/74
== END 2022-01-14 00:07 | disposition home or self-care (01) ==
LOC: ER 20:10
DX: G89.29 Other chronic pain (principal); M25.511 Pain in right shoulder; Z86.711 Personal history of pulmonary embolism; I10 Essential (primary) hypertension
CPT/HCPCS: 99284; 29105; 73030 ×2; 96372; J1885; A4663

== ENCOUNTER 2023-10-01 08:55 | Emergency (ER) | payer OTHER ==
[~2023-10-01] VITALS: Ht 175.3 cm; Wt 76.7 kg
[2023-10-01] MEDS: HYDROCODONE/APAP 5-325MG TABLET PO ONE (09:38)
[2023-10-01] MEDS ORDERED: HYDROCODONE/APAP 5-325MG TABLET ONE (09:38)
[2023-10-01 09:47] LABS: BASOPHILS # (AUTO) 0.1 K/UL (0.0-0.2); BASOPHILS % (AUTO) 2.5 % (0.0-2.0); EOSINOPHILS # (AUTO) 0.4 K/uL (0.0-0.7); EOSINOPHILS % (AUTO) 7.8 % (0.0-7.0); HEMATOCRIT 37.3 % (31.2-41.9); HEMOGLOBIN 12.2 g/dL (10.9-14.3); LYMPHOCYTES # (AUTO) 1.5 K/uL (0.8-4.8); LYMPHOCYTES % (AUTO) 25.6 % (20.5-51.5); MEAN CORPUSCULAR HEMOGLOBIN 30.8 uug (24.7-32.8); MEAN CORPUSCULAR HGB CONC 33 g/dL (32.3-35.6); MEAN CORPUSCULAR VOLUME 94.4 fL (75.5-95.3); MONOCYTES # (AUTO) 0.4 K/uL (0.1-1.30); MONOCYTES % (AUTO) 7.2 % (0.0-11.0); NEUTROPHILS # (AUTO) 3.2 K/uL (1.8-8.9); NEUTROPHILS % (AUTO) 56.9 % (38.5-71.5); PLATELET COUNT (AUTO) 441 K/uL (179-408); RED BLOOD CELL COUNT(AUTO) 3.95 MIL/uL (3.63-4.92); RED CELL DISTRIBUTION WIDTH 14.7 % (12.3-17.7); WHITE BLOOD COUNT (AUTO) 5.7 K/uL (3.8-11.8)
[2023-10-01 09:50] LABS: DIFFERENTIAL COMMENT 1
[2023-10-01 09:55] LABS: CREATININE 0.6 mg/dL (0.6-1.3)
[2023-10-01 09:55] LABS: *BILIRUBIN,URIN NEGATIVE (NEGATIVE); *BLOOD, URINE NEGATIVE (NEGATIVE); *CLARITY,URINE CLEAR (CLEAR); *COLOR,URINE YELLOW (YELLOW); *KETONES,URINE NEGATIVE (NEGATIVE); *PROTEIN,URINE NEGATIVE (NEGATIVE); *UROBILINOGEN,URINE 0.2 E.U./dl (NORMAL); LEUKOCYTE ESTERASE ,URINE NEGATIVE (NEGATIVE); NITRITE, URINE NEGATIVE (NEGATIVE); UGLUCOSE NEGATIVE (NEGATIVE)
[2023-10-01 09:57] LABS: *URINE HCG, QUAL NEGATIVE (NEGATIVE)
[2023-10-01 10:01] LABS: ALBUMIN 3.7 g/dL (3.4-5.0); BILIRUBIN,DIRECT 0.1 mg/dL (0.0-0.2); BILIRUBIN,TOTAL 0.4 mg/dL (0.2-1.0); TOTAL PROTEIN, SERUM 7.8 g/dL (6.4-8.2)
[2023-10-01 11:12] LABS: IRON, SERUM 41 ug/dL (50-175)
[2023-10-01] MEDS ORDERED: HYDR-3980 PO (11:39)
[2023-10-01 11:45] VITALS: BP 115/78; TEMP 97.8; O2SAT 98
== END 2023-10-01 11:46 | disposition home or self-care (01) ==
LOC: ER 08:57
DX: M79.662 Pain in left lower leg (principal); R10.2 Pelvic and perineal pain; R73.03 Prediabetes; G43.909 Migraine, unspecified, not intractable, without status migrainosus; I10 Essential (primary) hypertension; E78.5 Hyperlipidemia, unspecified; Z88.5 Allergy status to narcotic agent; Z88.8 Allergy status to other drugs, medicaments and biological substances; Z91.041 Radiographic dye allergy status; Z79.899 Other long term (current) drug therapy
CPT/HCPCS: 36415; 83550; 83735; 84703; 85025; A4606; A4663